=== PATIENT | male | born 1960 | race Caucasian/White ===

== ENCOUNTER 2016-08-12 10:19 | Emergency (ER) | payer OTHER ==
--- NOTE | 2016-08-12 10:38 | UCPHY ---
H & P Time Seen by Provider: 08/12/16 10:27 Patient Type: New HPI/ROS: CHIEF COMPLAINT: Left upper quadrant abdominal pain HPI: The patient is a 55-year-old male with no significant past medical history. Last night he experience some mild pain in his left upper quadrant. This morning he woke from sleep with severe left upper quadrant pain. The patient points to an area just below the ribcage on the left anterior abdomen as the site of pain. The patient states he was lifting some heavy going to equipment yesterday which may be related although he did not experience severe pain at that time. He denies dysuria or abnormal color in his urine. He denies fever. Symptoms were partially 0 relieved with ibuprofen. REVIEW OF SYSTEMS: Aside from elements discussed in the HPI, a comprehensive 10-point review of systems was reviewed and is negative. PMH: No history of abdominal surgery. No history of heart disease or diverticulitis. SOCIAL HISTORY: Denies alcohol or drug abuse. FAMILY HISTORY: Reviewed, noncontributory PHYSICAL EXAM: General:Patient is alert, in no acute distress. ENT:Eyes are normal to inspection. ENT inspection normal. Neck: Normal inspection. Full range of motion. Respiratory:No respiratory distress. Breath sounds normal bilaterally. Cardiovascular: Regular rate and rhythm. Strong peripheral pulses. Normal cap refill. Abdomen: Mild to moderate tenderness to palpation in the left upper quadrant of the abdomen is present. Remainder of abdomen is nontender. No ecchymosis or swelling noted. Back: Normal to inspection. No tenderness to palpation. Skin: Normal color. No rash. Warm and dry. Extremities: Normal appearance. Full range of motion. Neuro: Oriented x3. Normal motor function. Normal sensory function. Constitutional: Initial Vital Signs Temperature (C) 36.4 C 08/12/16 10:30 Heart Rate 84 08/12/16 10:30 Respiratory Rate 16 08/12/16 10:30 Blood Pressure 159/88 H 08/12/16 10:30 O2 Sat (%) 93 08/12/16 10:30 O2 Delivery Mode Room Air Allergies/Adverse Reactions: No Known Allergies Allergy (Verified 08/12/16 10:37) Home Medications: Medication Instructions Recorded Amoxicillin/Clavulanate Pot 875 mg PO BID #14 tab 08/12/16 [Augmentin 875Mg] Aspirin 08/12/16 PRILOSEC 08/12/16 MDM/Departure - MDM Diagnostics: CT scan of the abdomen and pelvis reveals acute diverticulitis without abscess. Aortic ectasia is also noted. ED Course/Re-evaluation: Patient presents with left upper quadrant pain likely secondary to acute diverticulitis which seen on CT scan. The patient will be treated with Augmentin. He is appropriate for outpatient therapy as he is afebrile and not in significant pain. I cautioned the patient regarding the incidental finding of ectasia of his abdominal aorta as well as the need for follow-up to ensure this is not turn into an abdominal aortic aneurysm. - Depart Disposition: Home, Routine, Self-Care Clinical Impression: Diverticulitis Qualifiers: Diverticulitis site: large intestine Diverticulitis bleeding: without bleeding Diverticulitis complication: without perforation or abscess Qualified Code(s): K57.32 - Diverticulitis of large intestine without perforation or abscess without bleeding Condition: Good Instructions: Diverticulitis (ED) Additional Instructions: Your CT scan reveals the you have diverticulitis which is inflammation of the wall of the colon. The sure to follow up with your primary care doctor after this episode resolves to discuss ways in which to prevent this. Your CT scan also reveals some irregularities of the wall of the abdominal aorta. This should be followed regularly by your doctor as, in the worse case, this can turn into an abdominal aortic aneurysm which can be life-threatening. We recommend repeat imaging within the next year. Prescriptions: Amoxicillin/Clavulanate Pot [Augmentin 875Mg] 875 mg PO BID #14 tab Referrals: Scott Crain [Primary Care Provider] - As per Instructions - PQRS PQRS Measurement: 134: Depression screening and followup, PRIME MD-PHQ2 (12 years and older) Over the last 2 weeks, how often have you been bothered by any of the following problems? 1. Feeling down, depressed, or hopeless? 2. Little interest or pleasure in doing things? Patient answered no to both 1 and 2 130: Documentation of medications. Reviewed all patient medications, doses, route and frequency. 226: Do you smoke? No. 51: 18 years old and older with diagnosis of COPD, spirometry performance. Spirometry not performed; equipment not available. Patient has no history of COPD 52: 18 years old and older with COPD and symptoms of COPD or FEV1<60% predicted prescribed a B Agonist. Spirometry not performed; equipment not available.
[2016-08-12 11:40] VITALS: BP 147/86; PULSE 88; RESP 18; TEMP 98.4; O2SAT 96
== END 2016-08-12 11:38 | disposition home or self-care (01) ==
LOC: CED 10:19
DX: K57.32 Diverticulitis of large intestine without perforation or abscess without bleeding (principal)
CPT/HCPCS: 74176-PO; 99204-PO; G0463-PO